=== PATIENT | male | born 1985 | race Hispanic/Latino ===

== ENCOUNTER 2017-06-01 20:40 | Emergency (ER) | payer BC ==
[2017-06-01 20:47] VITALS: BP 191/103; PULSE 143; RESP 16; TEMP 98; O2SAT 100
--- NOTE | 2017-06-01 21:59 | ED PDOC ---
HPI: Psych/Substance Abuse Time Seen by Provider: 06/01/17 20:51 Chief Complaint (Nursing): Alcohol Ingestion Chief Complaint (Provider): found intoxicated History Per: Patient, EMS History/Exam Limitations: no limitations Current Symptoms Are (Timing): Still Present Modifying Factor(s): Alcohol Involuntary Hold By: Emergency Physician Additional Complaint(s): 32yo male presents via EMS found with unsteady gait admitted to drinking alcohol at a bar. Denies trauma or injury. Ambulated into the ED. Initially uncooperative but able to be redirected. Significant other at bedside briefly, then she left on own accord. Past Medical History Reviewed: Historical Data, Nursing Documentation, Vital Signs Vital Signs: Last Vital Signs Temp 98.0 F 06/01/17 20:43 Pulse 143 H 06/01/17 20:43 Resp 16 06/01/17 20:43 BP 191/103 H 06/01/17 20:43 Pulse Ox 100 06/01/17 20:43 - Medical History PMH: No Chronic Diseases - Surgical History Surgical History: No Surg Hx - Family History Family History: States: Unknown Family Hx - Living Arrangements Living Arrangements: With Friends/Others (w significant other) - Social History Alcohol: > 2 Drinks/Day Drugs: Denies - Allergies Allergies/Adverse Reactions: Allergies Allergy/AdvReac Type Severity Reaction Status Date / Time Penicillins Allergy RASH Verified 06/01/17 20:43 Review of Systems Review Of Systems: ROS cannot be obtained secondary to pt's inabilty to answer questions. (intoxicated) Physical Exam - Reviewed Nursing Documentation Reviewed: Yes Vital Signs Reviewed: Yes - Physical Exam Appears: Positive for: Non-toxic (speech mildly slurred and pressured; no gross trauma; +AOB), No Acute Distress Head Exam: Positive for: ATRAUMATIC, NORMAL INSPECTION, NORMOCEPHALIC Skin: Positive for: Normal Color, Warm, DRY Eye Exam: Positive for: EOMI, Normal appearance, PERRL ENT: Positive for: Normal ENT Inspection Neck: Positive for: Normal, Painless ROM Cardiovascular/Chest: Positive for: Regular Rate, Rhythm Respiratory: Positive for: CNT, Normal Breath Sounds Gastrointestinal/Abdominal: Positive for: Soft. Negative for: Tenderness Back: Positive for: Normal Inspection. Negative for: Vertebral Tenderness Extremity: Positive for: Normal ROM Neurologic/Psych: Positive for: Alert, Oriented, Mood/Affect (intoxicated appearing ). Negative for: Motor/Sensory Deficits - ECG O2 Sat by Pulse Oximetry: 100 Medical Decision Making Medical Decision Making: patient to be monitored to clinical sobriety 1030p- awake, ambulating, nonpressured speech 1125pm- ambulating and wishes to go home. Cooperative, steady gait, clear speech. DC from ED. Encourage abstinence. Disposition - Clinical Impression Clinical Impression: Alcohol abuse - Patient ED Disposition Is Patient to be Admitted: No Counseled Patient/Family Regarding: Studies Performed, Diagnosis, Need For Followup, Rx Given - Disposition Disposition: Transfer of Care Disposition Time: 23:27 Condition: STABLE Additional Instructions: Recommend alcohol in moderation only. Instructions: Abuse of Alcohol (ED), At-Risk Alcohol Use (ED) Forms: [employer] ([place])
== END 2017-06-01 23:47 | disposition home or self-care (01) ==
LOC: H.ER 20:40
DX: F10.10 Alcohol abuse, uncomplicated (principal)

== ENCOUNTER 2019-01-27 00:56 | Emergency (ER) | payer SELFPAY ==
[2019-01-27 01:05] VITALS: BMI 25.8
--- NOTE | 2019-01-27 01:35 | ED PDOC ---
HPI: Psych/Substance Abuse Chief Complaint (Provider): etoh History Per: Patient, EMS History/Exam Limitations: no limitations Additional Complaint(s): 33 y/o male brought in by EMS for alcohol intoxication. Patient with abrasion and bruising to forehead, does not know how he got it. Patient admits to drinking "tonight". HPI limited due to patient's current state <Maci Cordero - Last Filed: 01/27/19 05:40> <Lexy Kang - Last Filed: 01/29/19 12:38> Time Seen by Provider: 01/27/19 01:13 Chief Complaint (Nursing): Alcohol Ingestion Past Medical History Reviewed: Historical Data, Nursing Documentation, Vital Signs Vital Signs: Last Vital Signs Temp 98.7 F 01/27/19 01:05 Pulse 120 H 01/27/19 01:05 Resp 18 01/27/19 01:05 BP 105/62 01/27/19 01:05 Pulse Ox 100 01/27/19 01:05 Primary Care Provider: Procedure,Nonphys - Medical History PMH: No Chronic Diseases - Surgical History Surgical History: No Surg Hx - Family History Family History: States: Unknown Family Hx <Maci Cordero - Last Filed: 01/27/19 05:40> Vital Signs: Last Vital Signs Temp 98.4 F 01/27/19 08:46 Pulse 90 01/27/19 08:46 Resp 18 01/27/19 08:46 BP 121/72 01/27/19 06:54 Pulse Ox 95 01/27/19 08:45 <Lexy Kang - Last Filed: 01/29/19 12:38> - Allergies Allergies/Adverse Reactions: Allergies Allergy/AdvReac Type Severity Reaction Status Date / Time Penicillins Allergy RASH Verified 01/27/19 01:05 Review of Systems ROS Statement: Except As Marked, All Systems Reviewed And Found Negative Skin: Positive for: Bruising <Maci Cordero - Last Filed: 01/27/19 05:40> Physical Exam - Reviewed Nursing Documentation Reviewed: Yes Vital Signs Reviewed: Yes - Physical Exam Appears: Positive for: Well, Non-toxic, No Acute Distress Head Exam: Positive for: NORMAL INSPECTION, NORMOCEPHALIC. Negative for: ATRAUMATIC (left frontal scalp abrasion, hematoma) Skin: Positive for: Normal Color Eye Exam: Positive for: Normal appearance, EOMI, PERRL ENT: Positive for: Normal ENT Inspection Cardiovascular/Chest: Positive for: Regular Rate, Rhythm Respiratory: Positive for: Normal Breath Sounds Gastrointestinal/Abdominal: Positive for: Normal Exam Back: Positive for: Normal Inspection Neurological/Psych: Positive for: Awake, Alert, Oriented (x1) <Maci Cordero - Last Filed: 01/27/19 05:40> - ECG O2 Sat by Pulse Oximetry: 100 - Progress ED Course And Treament: -accucheck -serum alcohol -CT head Patient attempting to get out of bed with unsteady gait despite being escorted back by security. Patient agitated. Patient unwilling to comply with alternative measures offered; patient restrained and medicated for acute agitation/safety CT SCAN OF THE BRAIN WITHOUT IV CONTRAST CLINICAL INDICATION: Head injury. TECHNIQUE: Axial and reformatted sagittal and coronal images of the brain obtained without IV contrast administration. Normal size of the ventricles and extra-axial spaces for the patient's age. Normal white matter tracts of the supratentorial brain. Normal basal ganglia and thalami. Normal brainstem. Normal cerebellum. There is no demonstrated extra-axial, intraparenchymal, or intraventricular hemorrhage. There are no findings of an acute ischemic infarction. Normal calvarium. There is no demonstrated fracture. Normal soft tissue structures. Normal visualized paranasal sinuses. IMPRESSION: Normal unenhanced CT scan of the brain. 3:30 Patient sleeping, no distress; vitals stable on monitor 5:00 Patient sleeping, no distress; vitals stable on monitor <Maci Cordero C - Last Filed: 01/27/19 05:40> Disposition - Patient ED Disposition Is Patient to be Admitted: No - Disposition Disposition Time: 06:00 Patient Signed Over To: Lexy Kang Handoff Comments: pending sobriety <Maci Cordero C - Last Filed: 01/27/19 05:40> - Patient ED Disposition Is Patient to be Admitted: Transfer of Care Counseled Patient/Family Regarding: Studies Performed, Diagnosis - Disposition Disposition: Transfer of Care Disposition Time: 07:00 Patient Signed Over To: Tonny See <Lexy Kang - Last Filed: 01/29/19 12:38> - Clinical Impression Clinical Impression: Alcohol abuse, Head injury - Disposition Referrals: [facility] [place] [Outside] - 01/30/19 Condition: STABLE Instructions: Alcohol Use - When Is Drinking a Problem?, Closed Head Injury (DC)
[2019-01-27 06:57] VITALS: BP 121/72; TEMP 98.4; O2SAT 95
--- NOTE | 2019-01-27 08:36 | ED PDOC ---
- ECG O2 Sat by Pulse Oximetry: 95 Pulse Ox Interpretation: Normal - Progress ED Course And Treament: 700: Took over care from Dr. Kang. Fu on sobriety. Ct head neg. Pt. intoxicated. 834: Stable. AAOx3. Pain free. Ambulated with no issues. Tolerated PO with no issues. Disposition - Clinical Impression Clinical Impression: Alcohol abuse, Head injury - POA Present On Arrival: Falls Or Trauma - Disposition Referrals: [facility] [Outside] - 01/30/19 Disposition: Routine/Home Disposition Time: 08:35 Condition: STABLE Instructions: Closed Head Injury (DC), Alcohol Use - When Is Drinking a Proble m?
[2019-01-27 08:48] VITALS: PULSE 90; RESP 18
--- NOTE | 2019-01-27 10:32 | CT ---
Date of service: 01/27/2019 PROCEDURE: CT HEAD WITHOUT CONTRAST. HISTORY: ETOH, head injury. COMPARISON: No prior study available comparison. TECHNIQUE: Axial computed tomography images were obtained through the head/brain without intravenous contrast. Radiation dose: Total exam DLP = 1083.25 mGy-cm. This CT exam was performed using one or more of the following dose reduction techniques: Automated exposure control, adjustment of the mA and/or kV according to patient size, and/or use of iterative reconstruction technique. FINDINGS: HEMORRHAGE: No acute parenchymal, subarachnoid or extra-axial hemorrhage. BRAIN: Suspect minor chronic periventricular white matter ischemic changes. There is mild generalized volume loss. VENTRICLES: No evidence of obstructive hydrocephalus CALVARIUM: Calvarium intact. Suspect minor cyst left parietal scalp swelling PARANASAL SINUSES: Partial bilateral ethmoidectomies and apparent mild bilateral medial wall maxillary antrostomy defects MASTOID AIR CELLS: Unremarkable as visualized. No inflammatory changes. OTHER FINDINGS: None. IMPRESSION: No acute intracranial hemorrhage. Suspect minor left parietal scalp swelling. Suspect minimal chronic periventricular white matter ischemic changes. Mild generalized volume loss. Postoperative changes involving the ethmoid and maxillary sinuses as detailed above.
== END 2019-01-27 08:46 | disposition home or self-care (01) ==
LOC: H.ER 00:56
DX: F10.129 Alcohol abuse with intoxication, unspecified (principal); S00.83XA Contusion of other part of head, initial encounter; W19.XXXA Unspecified fall, initial encounter; Y92.89 Other specified places as the place of occurrence of the external cause; Z88.0 Allergy status to penicillin
CPT/HCPCS: 70450; 82948; 96372; 99283; G0480; J1630; J2060